=== PATIENT | female | born 1950 | race Caucasian/White ===

== ENCOUNTER 2018-10-20 14:09 | Emergency (ER) | payer MEDICARE ==
--- NOTE | 2018-10-20 15:04 | EDM.PDOC ---
ED HPI GENERAL MEDICAL PROBLEM - General Chief Complaint: Back Pain or Injury Stated [facility] Time Seen by Provider: 10/20/18 14:40 Source of Information: Reports: Patient, Family History Limitations: Reports: No Limitations - History of Present Illness INITIAL COMMENTS - FREE TEXT/NARRATIVE: 68-year-old female who 2 weeks ago was working on her yard building a retaining wall, lifting timber and rocks and thinks she may have "overdone it". She has developed a very intense pain in the upper left buttock and sacroiliac area over the past 2 weeks. She went to a chiropractor 6 days ago, which seemed to give her relief for 2 days but it has returned. Ibuprofen takes the edge off. It is mostly painful when she gets up and gets going in the morning or when she' s bearing weight with the left leg. She has no symptoms down the leg, no weakness, no rash, no fever or chills. It's very difficult for her to go upstairs. Onset: Gradual Duration: Week(s): (2 weeks) Location: Reports: Back Associated Symptoms: Reports: No Other Symptoms Left Lower Back Pain Score (Numeric/FACES): 3 - Related Data Allergies Allergy/AdvReac Type Severity Reaction Status Date / Time No Known Allergies Allergy Verified 10/20/18 14:33 Home Meds: Home Meds Anastrozole [Arimidex] 1 mg PO DAILY 10/20/18 [History] Aspirin 81 mg PO DAILY 10/20/18 [History] Cholecalciferol (Vitamin D3) [Vitamin D3] 5,000 unit PO DAILY 10/20/18 [History] Diltiazem HCl [Diltiazem ER] 120 mg PO DAILY 10/20/18 [History] Escitalopram [Lexapro] 20 mg PO DAILY 10/20/18 [History] Levomefolate Calcium [l-Methylfolate Calcium] 15 mg PO DAILY 10/20/18 [History] Methylphenidate [Concerta] 54 mg PO DAILY 10/20/18 [History] Metoprolol Tartrate 25 mg PO DAILY 10/20/18 [History] Omeprazole 40 mg PO DAILY 10/20/18 [History] Tolterodine Tartrate [Tolterodine Tartrate ER] 4 mg PO DAILY 10/20/18 [History] Vortioxetine Hydrobromide [Brintellix] 20 mg PO DAILY 10/20/18 [History] Zoledronic Acid [Zometa] 4 mg IV 10/20/18 [History] Zolpidem Tartrate [Ambien] 10 mg PO QPM 10/20/18 [History] diphenhydrAMINE HCl [Allergy] 25 mg PO DAILY 10/20/18 [History] Past Medical History Oncologic (Cancer) History: Reports: Breast - Infectious Disease History Infectious Disease History: Reports: Chicken Pox, Measles, Mumps - Past Surgical History GI Surgical History: Reports: Other (See Below) Other GI Surgeries/Procedures: lap band removal Musculoskeletal Surgical History: Reports: Other (See Below) Other Musculoskeletal Surgeries/Procedures:: broke pelvis Oncologic Surgical History: Reports: Lumpectomy Social & Family History - Tobacco Use Smoking Status *Q: Never Smoker - Caffeine Use Caffeine Use: Reports: Coffee, Soda, Tea - Recreational Drug Use Recreational Drug Use: No ED ROS GENERAL - Review of Systems Review Of Systems: See Below Constitutional: Denies: Fever, Chills, Malaise HEENT: Reports: No Symptoms Respiratory: Denies: Shortness of Breath Cardiovascular: Denies: Chest Pain GI/Abdominal: Denies: Nausea, Vomiting : Reports: No Symptoms Skin: Denies: Rash Neurological: Denies: Paresthesia ED EXAM,LOWER BACK PAIN/INJURY - Physical Exam Exam: See Below Exam Limited By: No Limitations General Appearance: Alert, No Apparent Distress, Other (Lying on her right side , the most comfortable position) Respiratory/Chest: No Respiratory Distress Extremities: Other (She has full passive range of motion of the left hip without pain, including internal and external rotation. Straight leg raising of the left leg is negative. She has no palpation tenderness over the greater trochanteric area. She is very tender to palpation from the SI joint on the left side through the upper gluteal muscles.) Neurological: Alert, Normal Mood/Affect, Oriented x 3 Psychiatric: Normal Affect, Normal Mood Skin Exam: Warm, Dry Course - Vital Signs Last Recorded V/S: Last Vital Signs Temp 98 F 10/20/18 14:44 Pulse 66 10/20/18 14:44 Resp 19 10/20/18 14:44 BP 162/90 H 10/20/18 14:44 Pulse Ox 96 10/20/18 14:44 - Re-Assessments/Exams Free Text/Narrative Re-Assessment/Exam: 10/20/18 15:02 Patient will be placed on prednisone 60 mg daily for 5 days, given Flexeril and 6 hydrocodone for extra pain control. She can increase activity as tolerated and recheck later this week if not improving. I think she likely has a tendinitis of the proximal aspect of the gluteal muscles or possibly some sacroiliac strain. Departure - Departure Time of Disposition: 15:17 Disposition: Home, Self-Care 01 Clinical Impression: Sacroiliac joint dysfunction of left side, Gluteal tendinitis of left buttock - Discharge Information Instructions: Sacroiliac Joint Dysfunction, Tendinitis, [id number] Referrals: PCP,None [Primary Care Provider] - Forms: ED Department Discharge Care Plan Goals: Take 6 pills of prednisone with food daily for the next 2-5 days. Use Flexeril for muscle relaxation up to 3 times daily, and continue ibuprofen for pain. Add hydrocodone for extra pain control if needed. Consider rechecking in the next 3- 5 days if not improving satisfactorily, increase activity as tolerated.
== END 2018-10-20 15:17 | disposition home or self-care (01) ==
LOC: JP.ED 14:09
DX: M76.02 Gluteal tendinitis, left hip (principal); M53.3 Sacrococcygeal disorders, not elsewhere classified; Z79.82 Long term (current) use of aspirin; Z79.899 Other long term (current) drug therapy
CPT/HCPCS: 99283